=== PATIENT | female | born 2000 | race Caucasian/White ===

== ENCOUNTER 2018-07-16 17:11 | Emergency (ER) | payer OTHER ==
[~2018-07-16] VITALS: Ht 167.6 cm; Wt 111.1 kg
[2018-07-16 17:40] VITALS: BP_SYST 116
--- NOTE | 2018-07-16 17:54 | NUR ---
Patient to ER bed H1 to gown for evaluation. Side rails up.
--- NOTE | 2018-07-16 17:55 | NUR ---
Patient to ER via triage for evaluation of back pain, no trauma/injury reported. Patient denies any urinary symptoms. Patient is awake, alert and oriented in no acute distress, able to ambulate without difficulty with slow, steady gait to Hallway bed, awaiting evaluation by ER MD/AGRICULTURE CONSULTANT, will continue to observe and assess. Family at bedside.
--- NOTE | 2018-07-16 18:30 | NUR ---
Marnie Fonseca [employer] at bedside to evaluate patient.
[2018-07-16] MEDS ORDERED: KETOROLAC TROMETHAMINE 60 MG/2 ML VIAL IM ONE (18:45)
--- NOTE | 2018-07-16 19:30 | NUR ---
Assessment unchanged, awaiting dispo.
[2018-07-16 19:55] VITALS: BP_SYST 110
--- NOTE | 2018-07-16 19:55 | NUR ---
Patient given written and verbal discharge instructions and verbalizes understanding. ER MD discussed with patient the results and treatment provided. Patient in stable condition. ID arm band removed. Rx of Motrin given. Patient educated on pain management and to follow up with PMD. Pain Scale 0. Opportunity for questions provided and answered. Medication side effect fact sheet provided. Patient left ER in no acute distress, able to ambulate without difficulty with slow, steady gait with family at her side. No adverse reaction noted to medication.
== END 2018-07-16 19:55 | disposition home or self-care (01) ==
LOC: SED 17:11
DX: G89.29 Other chronic pain (principal); M54.5 Low back pain; M54.6 Pain in thoracic spine; J45.909 Unspecified asthma, uncomplicated
CPT/HCPCS: 81025; 96372; 99283; J1885